=== PATIENT | female | born 2000 | race Caucasian/White ===

== ENCOUNTER → 2020-07-09 | Outpatient (CLI) | payer OTHER ==
[2020-07-10 06:12] LABS: VITAMIN D, 25-HYDROXY 19.2 ng/mL (30.0-100.0)
== END ==
LOC: LAB 10:13
PROVIDERS: Registered Nurse Administrator
DX: F33.1 Major depressive disorder, recurrent, moderate (principal); F43.10 Post-traumatic stress disorder, unspecified; Z79.899 Other long term (current) drug therapy
CPT/HCPCS: 36415; 80178; 82607